=== PATIENT | female | born 1950 | race American Indian/Alaskan Native ===

== ENCOUNTER 2017-03-18 10:34 | Outpatient (CLI) | payer MEDICARE, OTHER ==
--- NOTE | 2017-03-18 14:05 | Cat Scan Report ---
CT OF THE ABDOMEN AND PELVIS WITHOUT CONTRAST HISTORY: Recurrent abdominal pain. TECHNIQUE: Helical CT without contrast. Sagittal and coronal reformatted images. FINDINGS: There are multiple low density liver lesions consistent with cysts. The largest cyst measures 7.5 cm in the left hepatic lobe. No suspicious liver mass. The biliary system, pancreas, spleen, adrenal glands, aorta and bowel loops are within normal limits. Normal appendix. 1.6 cm cyst in the mid left kidney is noted. The kidneys, collecting systems and bladder are unremarkable otherwise. The uterus is small in size or surgically absent. No adnexal mass. Heart size is normal. The visualized lung bases are clear. No bony fracture or suspicious bone lesion. No evidence for ascites, inflammatory changes or adenopathy. IMPRESSION: Multiple liver cysts and left renal cyst. No acute inflammatory process is appreciated in the abdomen or pelvis.
== END 2017-03-18 10:35 | disposition home or self-care (01) ==
LOC: CT 10:34
PROVIDERS: ATTEND Internal Medicine
DX: N28.1 Cyst of kidney, acquired (principal); K76.89 Other specified diseases of liver
CPT/HCPCS: 74176